=== PATIENT | female | born 1990 ===

== ENCOUNTER 2017-03-22 13:29 | Inpatient (IN) | payer OTHER ==
[2017-03-31 05:03] VITALS: BMI 36.0
[2017-03-31] MEDS: Lactated Ringer's 1,000 ML IV SCH ×4 (05:40→17:45)
[2017-03-31] MEDS ORDERED: Oxytocin 30 UNITS in Sodium Chloride 0.9% 500 ML IV ONE (05:47)
[2017-03-31 06:01] LABS: HEMATOCRIT 28.1 % (34.0-47.0); MEAN CELL VOLUME 76.3 fl (81.0-99.0); MEAN CORPUSCULAR HEMOGLOBIN 23.8 pg (27.0-31.0); MEAN CORPUSCULAR HGB CONC 31.1 g/dL (33.0-37.0); RED CELL DISTRIBUTION WIDTH 17.5 % (11.5-14.5); WHITE BLOOD COUNT 8.3 K/uL (4.8-10.8)
[2017-03-31] MEDS ORDERED: ceFAZolin IV 1 gm in Dextrose 1 GM/50 ML BAG IVPB ONE (07:11)
[2017-03-31] MEDS ORDERED: ceFAZolin IV 2 gm in Dextrose 2 GM/50 ML BAG IVPB ONE (07:33)
[2017-03-31] MEDS ORDERED: Morphine 1 mg/ml preservative-free Inj(Duramorph) ONE (07:45)
[2017-03-31] MEDS ORDERED: Phenylephrine 10 mg/ml Inj ONE (07:50)
[2017-03-31] MEDS ORDERED: ePHEDrine 50 mg/ml Inj ONE (07:51)
[2017-03-31] MEDS ORDERED: Rubella Virus Vaccine Inj SC ONE (09:00)
[2017-03-31] MEDS ORDERED: Lidocaine 4% MPF 5 ML IJ ONE (09:30)
[2017-03-31] MEDS ORDERED: DiphenhydrAMINE 50 mg/ml Inj IVP PRN (14:45)
[2017-03-31] MEDS ORDERED: Oxycodone/Acetaminophen 5/325 mg Tab PO PRN (14:45)
[2017-04-01] MEDS: Lactated Ringer's 1,000 ML IV SCH (01:40)
[2017-04-01] MEDS: Oxycodone/Acetaminophen 5/325 mg Tab PO PRN ×3 (04:43→19:26)
[2017-04-01] MEDS ORDERED: Oxycodone/Acetaminophen 5/325 mg Tab PO PRN (05:50)
[2017-04-01 06:52] LABS: HEMATOCRIT 23.3 % (34.0-47.0); MEAN CELL VOLUME 75.9 fl (81.0-99.0); MEAN CORPUSCULAR HEMOGLOBIN 24.2 pg (27.0-31.0); MEAN CORPUSCULAR HGB CONC 31.9 g/dL (33.0-37.0); RED CELL DISTRIBUTION WIDTH 17.9 % (11.5-14.5); WHITE BLOOD COUNT 10.6 K/uL (4.8-10.8)
[2017-04-01] MEDS ORDERED: Simethicone 80 mg Chewtab PO PRN (10:14)
--- NOTE | 2017-04-01 10:29 | OBPPN ---
Datetime: 04/01/2017 10:26 PP Pain Prov: Within normal limits PP Nausea Prov: Denies PP Flatus Prov: Yes PP BM Prov: No PP Breasts Prov: Normal PP Heart Prov: Normal PP Lungs Prov: Normal PP Abdomen/Uterus Prov: Normal PP Lochia Prov: Normal PP Vulva/Perineum Prov: Normal PP CVA Tenderness Prov: Normal PP Extremities Prov: Normal PP C/S Incision Prov: Normal PP Progress Prov: Normal PP Impression Prov: Normal progression PP Plan Prov: Continue present management IP PP Procedures: Rubella Vital Signs Provider PP: Reviewed
--- NOTE | 2017-04-01 10:31 | OBDS ---
DELIVERY PERSONNEL Delivery Doctor: Chet Higginbotham MD Scrub Nurse: Marybeth Horne OBT Berry Planter: Milagros Nuñez RN Anesthesiologist: Andrew Mata MD MATERNAL INFORMATION Delivery Anesthesia: Spinal Medications in Delivery: pitocin after placenta delivery Estimated Blood Loss (ml): 500 Placenta Cultured: Yes Maternal Complications: Other Other Maternal Complications: twins LABOR SUMMARY EDC: 04/20/2017 00:00 No. Babies in Womb: 2 Attempted: No LABOR INFORMATION Group B Beta Strep: Negative Antibiotics # of Doses: ancef 2 grams x1 Antibiotics Time of Last Dose: at 07:54 am MEMBRANES Membranes Rupture Method: Artificial Rupture of Membranes: 03/31/2017 09:14 Length of Rupture (hrs): 0.00 Amniotic Fluid Color: Clear Amniotic Fluid Amount: Moderate Amniotic Fluid Odor: Normal STAGES OF LABOR Stage 3 hrs: 0 Stage 3 min: 2 VAGINAL DELIVERY Episiotomy: None Laceration Extension: N/A Laceration Type: None CSECTION DELIVERY Primary Indication: Breech Presentation Secondary Indication: Multiple Gestation Other Secondary Indication: twins CSection Urgency: Elective CSection Incidence: Primary Labor: N/A Elective: Elective CSection Incision: Lower Uterine Transverse BABY A INFORMATION Infant Delivery Date/Time: 03/31/2017 09:14 Method of Delivery: Born in Route : Yes : N/A Forceps: N/A Vacuum Extraction: N/A SHOULDER DYSTOCIA BABY A Infant Delivery Date/Time: 03/31/2017 09:14 PRESENTATION/POSITION BABY A Presentation: Breech Breech Presentation: Deonte PLACENTA INFORMATION BABY A Placenta Delivery Time : 03/31/2017 09:16 Placenta Method of Delivery: Expressed Placenta Status: Delivered SCORES BABY A Heart Rate 1 min: >100 bpm Resp Effort 1 min: Slow, Irregular Reflex Irritability 1 min: Grimace Muscle Tone 1 min: Some Flexion of Extremities Color 1 min: Completely Towson Resuscitation Effort 1 min: Tactile Stimulation; Oxygen SCORE 1 MIN: 7 Heart Rate 5 min: >100 bpm Resp Effort 5 min: Good Cry Reflex Irritability 5 min: Cough or Sneeze or Pulls Away Muscle Tone 5 min: Active Motion Color 5 min: Body Towson, Extremities Blue SCORE 5 MIN: 9 Heart Rate 10 min: >100 bpm Resp Effort 10 min: Good Cry Reflex Irritability 10 min: Cough or Sneeze or Pulls Away Muscle Tone 10 min: Active Motion Color 10 min: Completely Towson SCORE 10 MIN: 10 INFANT INFORMATION BABY A Gestational Age at Delivery: 37+ Gestational Status: Term Outcome : Liveborn Condition : Stable Sex: Female IDENTIFICATION/MEDS BABY A ID Band Number: [id number] ID Band Location: Right Leg; Right Arm WEIGHT/LENGTH BABY A Infant Birthweight (gms): 2680 Weight (lb): 5 Infant Weight (oz): 15 Length Inches: 20.00 Infant Length cms: 50.8 CORD INFORMATION BABY A No. Cord Vessels: 3 Nuchal Cord : N/A Nuchal Cord Other: no True Knot: no Infant Cord pH Baby Arterial: no Infant Cord pH Baby Venous: no Cord Blood Taken: Yes Banking/Donate Info: no Infant Suction: Mouth; Nose ASSESSMENT BABY A Infant Complications: None Physical Findings at Delivery: Within Normal Limits Infant Respirations: Appears Normal Care By: dr espino / aníbal geller rn Transferred To: [facility] BABY B INFORMATION Delivery Date/Time: 03/31/2017 09:15 Method of Delivery : Born in Route : Yes : N/A Forceps : N/A Vacuum Extraction: N/A Shoulder Dystocia : No SHOULDER DYSTOCIA BABY B Infant Delivery Date/Time: 03/31/2017 09:15 PRESENTATION/POSITION BABY B Presentation : Cephalic Cephalic Position : Vertex Breech Position: N/A ROM/PLACENTA INFO BABY B Rupture of Membranes: 03/31/2017 09:15 Length of Rupture (hrs): 0.00 Placenta Delivery Time : 03/31/2017 09:16 Placenta Method of Delivery: Expressed Placental Status : Delivered SCORES BABY B Heart Rate 1 min: >100 bpm Resp Effort 1 min: Good Cry Reflex Irritability 1 min: Cough or Sneeze or Pulls Away Muscle Tone 1 min: Active Motion Color 1 min: Body Towson, Extremities Blue Resuscitation Effort 1 min: Tactile Stimulation SCORE 1 MIN: 9 Heart Rate 5 min: >100 bpm Resp Effort 5 min: Good Cry Reflex Irritability 5 min: Cough or Sneeze or Pulls Away Muscle Tone 5 min: Active Motion Color 5 min: Body Towson, Extremities Blue SCORE 5 MIN: 9 Heart Rate 10 min: >100 bpm Resp Effort 10 min: Good Cry Reflex Irritability 10 min: Cough or Sneeze or Pulls Away Muscle Tone 10 min: Active Motion Color 10 min: Completely Tow[place] SCORE 10 MIN: 10 INFANT INFORMATION BABY B Gestational Age at Delivery: 37+3 Gestational Status : Term Outcome : Liveborn Infant Condition : Stable Infant Sex : Male IDENTIFICATION/MEDS BABY B ID Band Number : [id number] ID Band Location : Right Leg; Right Arm WEIGHT/LENGTH BABY B Infant Birthweight (gms): 2385 Infant Weight (lb) : 5 Infant Weight (oz): 4 Length Inches: 19.00 Length cms: 48.26 CORD INFORMATION BABY B No. Cord Vessels : 3 Nuchal Cord : N/A True Knot : none Infant Cord pH Arterial: none Infant Cord pH Venous: none Cord Blood Taken : Yes Banking/Donate Info : none Suction : Mouth; Nose ASSESSMENT BABY B Complications : None Physical Findings at Delivery: Within Normal Limits Infant Respirations : Appears Normal Metal Engraver/ALS Called : Yes Care By : dougie malin red lead burner To: [facility]
--- NOTE | 2017-04-01 15:21 | OP ---
PROCEDURE DATE: 03/31/2017 PREOPERATIVE DIAGNOSES: Intrauterine at 37 plus weeks, twin gestation, malpresentation of twins, for elective section. PROCEDURE: Primary low-transverse section with a Pfannenstiel skin incision. SURGEON: Corrie Higginbotham MD. SKIP MINER: Silvestre Bueno DO. TYPE OF ANESTHESIA: Spinal. ANESTHESIA ADMINISTERED BY: Honorio Mata MD. FLUID REPLACEMENT: Lactated Ringer's. ESTIMATED BLOOD LOSS: 500 mL. DRAINS: Davis to gravity. COMPLICATIONS: None. FINDINGS: Female infant, breech presentation, twin A. Twin B, male infant, vertex presentation. Separate sacs. Placenta grossly within normal limits. Uterus, tubes and ovaries grossly within normal limits. INDICATION FOR SURGERY: A 37 plus weeks' twin gestation, malpresentation. DESCRIPTION OF PROCEDURE: After informed consent was obtained and signed, the patient was brought to the operating room and placed in supine position. Once spinal anesthesia was successfully induced, the patient was placed in dorsal supine position with a leftward tilt, prepped and draped in the usual sterile fashion. After evaluation of the anesthesia and noted to be adequate, the patient was prepped and draped in the usual sterile fashion. Aided with a scalpel, a Pfannenstiel skin incision was then performed extending it bilaterally using Bovie cauterization. The underlying fascia was then opened and extended bilaterally. The fascia was then grasped superiorly and inferiorly and dissected from the underlying rectus muscle by sharp dissection. Once the rectus muscles were exposed, the peritoneum was then entered bluntly and extended with careful visualization of the bowel and the bladder. The uterus was observed. The vesicular peritoneum was identified and a bladder flap was created using sharp and digital dissection. The bladder flap was placed in front of the bladder for protection. A scalpel was used to make a low-transverse uterine incision along the uterine segments and extended with bandage scissors bilaterally. Twin A membranes were ruptured, feet were brought through the incision and the baby was wrapped in a moist laparotomy towel and then delivered atraumatically. Cord doubly clamped and cut. Twin B membranes were ruptured and the baby B was then delivered cephalically through the incision. Cord doubly clamped and cut. Both babies were given to the awaiting pediatricians. Cord bloods were sent. Placenta was removed manually intact. Uterus was cleared and was removed and cleared of products of conception. The uterus was then closed using 1-0 Vicryl on a running interlocking stitch. A second layer closure was then performed. Good hemostasis was then reassured. Uterus returned back to the abdomen. Abdomen was copiously irrigated. Once complete, the peritoneum was then closed using 0 chromic. The fascia was then closed with an 0 Vicryl in a running stitch. The skin was closed in subcuticular fashion using 3-0 Monocryl on the Harry needle. Steri-Strips were applied. The patient tolerated the procedure well. The sponge, needle, equipment count were correct x3, and the patient went to recovery room in stable condition. Corrie Higginbotham MD MTDD
--- NOTE | 2017-04-02 11:17 | OBDCSUM ---
Datetime: 04/02/2017 11:12 Discharged to, Provider: Home Follow up at, Provider: Dr Higginbotham Disch Instr Activity: Normal activity Disch Instr Diet: Regular Discharge Instructions, Provider: Routine instructions given Discharge Diagnosis, Provider: Term Delivered Follow up in weeks, Provider: 2 weeks Disch Referrals: None Disch Activity Restrictions: No exercising; No lifting; No driving; Minimize stair-climbing; No sexu al activity; Nothing in vagina - Brave, tampons, douche Discharge Comment, Provider: Patient is w/o and complaint. Incision is clean and dry and intact . Lo fernando mild. Patient is stable for dischagre tomorrow if babies are stable with f/u in [address] Frances cha office. Pelvic rest for 6 week and breast care instruictions were given. Contraception after Delivery: Undecided
[2017-04-02] MEDS: Oxycodone/Acetaminophen 5/325 mg Tab PO PRN ×2 (12:02→19:35)
[2017-04-03] MEDS ORDERED: Measles, Mumps, and Rubella 0.5 ML VIAL SC ONE (09:00)
[2017-04-03 18:43] VITALS: BP 107/62; PULSE 81; RESP 20; TEMP 98.3; O2SAT 96
== END 2017-04-03 14:35 | disposition home or self-care (01) | DRG 766 ==
LOC: H.L&D 03-31 05:05 → H.OB/GYN 03-31 13:09
PROVIDERS: ADMIT Specialist; ATTEND Specialist
PROC: 10D00Z1 Extraction of Products of Conception, Low, Open Approach (ICD-10-PCS; principal; 2017-03-31)
PROC: 4A1HXCZ Monitoring of Products of Conception, Cardiac Rate, External Approach (ICD-10-PCS; 2017-03-31)
DX: O30.003 Twin pregnancy, unspecified number of placenta and unspecified number of amniotic sacs, third trimester (principal); Z37.2 Twins, both liveborn; O32.1XX1 Maternal care for breech presentation, fetus 1; O32.1XX2 Maternal care for breech presentation, fetus 2; O66.0 Obstructed labor due to shoulder dystocia